=== PATIENT | male | born 1950 | race Caucasian/White ===

== ENCOUNTER 2018-07-17 08:50 | Emergency (ER) | payer MEDICARE ==
[2018-07-17 08:53] VITALS: BMI 30.8
[2018-07-17 08:54] VITALS: O2SAT 98
--- NOTE | 2018-07-17 09:37 | ED PDOC ---
HPI: Head Injury Time Seen by Provider: 07/17/18 09:11 Chief Complaint (Nursing): Abnormal Skin Integrity Chief Complaint (Provider): Abnormal Skin Integrity History Per: Patient History/Exam Limitations: no limitations Injury Occurred (Timing): Just Before Arrival (1 hour [employer]) Onset/Duration Of Symptoms: Hrs (2) Additional Complaint(s): 67 years old male with history of hypertension presents to the ED for evaluation of head injury after he hit his head with storage locker 1 hour prior to arrival. Patient reports he takes Plavix and Aspirin for pacemaker. He denies loss of conscious or headache. Patient states last tetanus was 5 years ago. PMD: non provided Past Medical History Reviewed: Historical Data, Nursing Documentation, Vital Signs Vital Signs: Last Vital Signs Temp 98.6 F 07/17/18 08:53 Pulse 73 07/17/18 08:53 Resp 17 07/17/18 08:53 BP 149/97 H 07/17/18 08:53 Pulse Ox 98 07/17/18 08:53 - Medical History PMH: HTN, Hypercholesterolemia Denies: Chronic Kidney Disease - Surgical History Surgical History: Pacemaker - Family History Family History: States: Unknown Family Hx - Social History Current smoker - smoking cessation education provided: No Alcohol: Social Drugs: Denies - Immunization History Hx Tetanus Toxoid Vaccination: Yes - Allergies Allergies/Adverse Reactions: Allergies Allergy/AdvReac Type Severity Reaction Status Date / Time No Known Allergies Allergy Verified 07/17/18 09:22 Review of Systems ROS Statement: Except As Marked, All Systems Reviewed And Found Negative Musculoskeletal: Positive for: Other (Head injury) Neurological: Negative for: Headache, Other (loss of conscious) Physical Exam - Reviewed Nursing Documentation Reviewed: Yes Vital Signs Reviewed: Yes - Physical Exam Appears: Positive for: Non-toxic, No Acute Distress Head Exam: Negative for: ATRAUMATIC Eye Exam: Positive for: Normal appearance, EOMI, PERRL Neck: Positive for: Normal (No C-spine tenderness), Supple Neurologic/Psych: Positive for: Alert, Oriented (x3) Comments: Head: (+) 4.5 linear laceration to superior scalp, (-) active bleeding - ECG O2 Sat by Pulse Oximetry: 98 (RA) Pulse Ox Interpretation: Normal Medical Decision Making Medical Decision Making: Time: 0935 Patient tolerated procedure well and on blood thinners. Observe for head injury. 1037 Patient is alert and oriented x3. He denies headache and offers no complaints. Patient is feeling better, is medically stable, and requires no further treatment in the ED at this time. Scribe Attestation: Documented by Krystyna Copeland, acting as a scribe for Saritha Ramires MD. Provider Scribe Attestation: All medical record entries made by the Scribe were at my direction and personally dictated by me. I have reviewed the chart and agree that the record accurately reflects my personal performance of the history, physical exam, medical decision making, and the department course for this patient. I have also personally directed, reviewed, and agree with the discharge instructions and disposition. Procedures - Time-Out Type of Procedure: Abraham Site of Procedure: Head - Laceration/Wound Repair Head Wound Length (cm): 4.5 Wound's Depth, Shape: linear Wound Repaired With: Abraham (5) Wound Complexity: Simple Disposition - Clinical Impression Clinical Impression: Scalp laceration - Disposition Disposition: Routine/Home Disposition Time: 10:37 Condition: GOOD Additional Instructions: RETURN TO ED IN 5-7 DAYS FOR STAPLE REMOVAL. Instructions: Laceration Repair With Abraham (DC), Minor Head Injury Forms: [employer] ([place]ish) Print Language: JORDANIAN
[2018-07-17 12:56] VITALS: BP 161/90; PULSE 67; RESP 18; TEMP 97.8
== END 2018-07-17 10:38 | disposition home or self-care (01) ==
LOC: H.ER 08:50
DX: S01.01XA Laceration without foreign body of scalp, initial encounter (principal); W22.8XXA Striking against or struck by other objects, initial encounter; Y92.89 Other specified places as the place of occurrence of the external cause; Z79.02 Long term (current) use of antithrombotics/antiplatelets; E78.00 Pure hypercholesterolemia, unspecified; I10 Essential (primary) hypertension; Z95.0 Presence of cardiac pacemaker